=== PATIENT | female | born 1935 | race Caucasian/White ===

== ENCOUNTER 2022-05-17 11:39 | Emergency (ER) | payer OTHER ==
[2022-05-17 12:32] LABS: #Eosinphils 0.2 10x3/uL (0.0-0.5); #Monocytes 0.4 10x3/uL (0.0-1.1); #Neutrophils 3.1 10x3/uL (1.5-8.4); %Basophils 0.5 % (0.0-2.0); %Eosinophils 2.6 % (0.0-6.0); %Lymphocytes 40.7 % (18.0-47.0); %Monocytes 6.1 % (0.0-10.0); %Neutrophils 49.1 % (40.0-75.0); Hemoglobin 13.5 g/dL (12.0-15.5); Mean Corpuscular HGB CONC 32.1 g/dL (32.0-36.0); Mean Corpuscular Hemoglobin 30.6 pg (27.0-33.0); Mean Corpuscular Volume 95.3 fl (81.6-98.3); Mean Platelet Volume 11.5 fl (7.4-10.4); Platelet Count 120 10x3/uL (150-450); RBC Distribution Width 12.7 % (11.5-14.5); Red Blood Cell (RBC) Count 4.45 10x6/uL (3.90-5.03); White Blood Cell (WBC) Count 6.3 10x3/uL (3.5-10.5)
[2022-05-17 12:58] LABS: ALT (SGPT) 6 U/L (8-55); AST (SGOT) 15 U/L (5-34); Albumin 3.2 g/dL (3.4-4.8); Alkaline Phosphatase 59 U/L (40-110); Anion Gap 15 mmol/L (10-20); BUN (Urea Nitrogen) 15 mg/dL (9.8-20.1); Bilirubin, Total 0.6 mg/dL (0.2-1.2); Calc. Creatinine Clearance 0 mL/min (70-130); Carbon Dioxide 22 mmol/L (23-31); Chloride 109 mmol/L (98-107); Estimated GFR 76; Globulin 2.6 g/dL (2.4-3.5); Glucose 138 mg/dL (83-110); Protein, Total 5.8 g/dL (5.8-8.1); Sodium 142 mmol/L (136-145)
[2022-05-17 13:00] LABS: Platelet Morphology Comment Appears Decreased
[2022-05-17 13:54] LABS: Bilirubin Neg (Negative); Blood, Urine Negative (Negative); Clarity Sl. Cloudy (Clear); Glucose, Urine (Dipstick) Normal (Negative); Ketone, Urine 50 mg/dL (Negative); Leukocyte 25 (Negative); Nitrite Negative (Negative); Protein, Urine (Dipstick) 15 mg/dl (Neg-Trace); Specific Gravity, Urine 1.025 (1.005-1.030)
[2022-05-17 14:11] LABS: Bacteria/HPF 2+ HPF (None Seen); RBC/HPF None Seen HPF (0-3); WBC/HPF 0-3 HPF (0-3)
[2022-05-17] MEDS ORDERED: cefTRIAXone\\ROCEPHIN 1 GM VIAL ONE (14:26)
== END 2022-05-17 17:03 | disposition home or self-care (01) ==
LOC: CSHERS 11:39
DX: R55 Syncope and collapse (principal); N30.00 Acute cystitis without hematuria; E86.0 Dehydration; E03.9 Hypothyroidism, unspecified
CPT/HCPCS: 36415; 80053; 81003; 81015; 84484; 85025; 87086; 93005; 96374; J0696